=== PATIENT | female | born 1985 | race Two or more races ===

== ENCOUNTER 2022-03-04 09:16 | Emergency (ER) | payer MEDICAID, OTHER ==
[~2022-03-04] VITALS: Ht 170.2 cm; Wt 113.9 kg
[2022-03-04 09:46] LABS: Urine Bacteria MOD /hpf (None Seen); Urine Blood 3+ /uL (Negative); Urine Budding Yeast MODERATE /hpf (None Seen); Urine Specific Gravity 1.019 (1.001-1.035); Urine WBC 9 /hpf (0 - 5)
[2022-03-04] MEDS ORDERED: KETOROLAC TROMETH 30 MG/ML 1ML VIAL IV ONE (10:00)
[2022-03-04] MEDS ORDERED: SODIUM CHLORIDE 0.9% 1,000 ML IV ONE ×2 (10:00)
[2022-03-04 10:08] LABS: Basophils # (auto) 0.1 10 ^3/uL (0-0.2); Eosinophils # (auto) 0.1 10 ^3/uL (0-0.8); Hemoglobin 8.4 g/dL (12.2-16.2); Lymphocytes # (auto) 2.7 10 ^3/uL (0.4-5.4); Monocytes # (auto) 0.6 10 ^3/uL (0-1.3); Nucleated Red Blood Cells % 0.1 %
[2022-03-04 10:10] LABS: Eosinophils % (auto) 1.7 % (0.0-7.0); Lymphocytes % (auto) 31.9 % (10.0-50.0); Mean Corpuscular Hemoglobin 17.2 pg (28.0-32.0); Mean Corpuscular Volume 57.2 fL (80.0-100.0); Neutrophils % (auto) 58.4 % (37.0-80.0); White Blood Cell 8.5 10^3/uL (4.4-10.8)
[2022-03-04 10:29] LABS: Albumin 3.3 g/dL (3.4-5.0); Calcium 8.9 mg/dL (8.5-10.1)
[2022-03-04 10:32] LABS: BUN/Creatinine Ratio 22.7; Bilirubin, Total 0.4 mg/dL (0.2-1.0); Total Protein 7.7 g/dL (6.4-8.2)
[2022-03-04] MEDS ORDERED: NITR-87 PO (16:06)
[2022-03-04 16:19] VITALS: BP 100/50
== END 2022-03-04 16:04 | disposition home or self-care (01) ==
LOC: ER 09:16
DX: N39.0 Urinary tract infection, site not specified (principal); E46 Unspecified protein-calorie malnutrition; Z68.39 Body mass index [BMI] 39.0-39.9, adult
CPT/HCPCS: 36415; 74176; 80053; 81001; 81025; 85025; 96361; 96374; 99285; J1885; J7030

== ENCOUNTER 2023-03-04 11:57 | Emergency (ER) | payer MEDICAID ==
[~2023-03-04] VITALS: Ht 172.7 cm; Wt 110.9 kg
[~2023-03-04 11:57] MED LIST: NITR-87 PO
[2023-03-04 13:05] LABS: Urine Bacteria FEW /hpf (None Seen); Urine Blood Negative /uL (Negative); Urine Mucus FEW (None Seen); Urine Specific Gravity 1.031 (1.001-1.035); Urine WBC 7 /hpf (0 - 5)
[2023-03-04 13:22] LABS: Basophils # (auto) 0 10 ^3/uL (0-0.2); Basophils % (auto) 0.2 % (0.0-2.0); Eosinophils # (auto) 0.1 10 ^3/uL (0-0.8); Eosinophils % (auto) 1.1 % (0.0-7.0); Hemoglobin 8.7 g/dL (12.2-16.2); Lymphocytes # (auto) 1.8 10 ^3/uL (0.4-5.4); Monocytes # (auto) 0.5 10 ^3/uL (0-1.3); Neutrophils # (auto) 7.4 10 ^3/uL (1.6-8.6)
[2023-03-04 13:24] LABS: Lymphocytes % (auto) 18.7 % (10.0-50.0); Mean Corpuscular Hgb Conc. 28.8 g/dL (32.0-36.0); Mean Corpuscular Volume 55.3 fL (80.0-100.0); Nucleated Red Blood Cells % 0.2 %; Red Blood Cells 5.42 10^6/uL (4.0-5.20); White Blood Cell 9.8 10^3/uL (4.4-10.8)
[2023-03-04 13:29] LABS: Red Cell Distribution Width 20.2 % (11.8-14.3)
[2023-03-04 14:01] LABS: Potassium 3.5 mmol/L (3.5-5.1)
[2023-03-04 14:07] LABS: Albumin 3.4 g/dL (3.4-5.0); BUN/Creatinine Ratio 22.5 (10.0-20.0); Bilirubin, Total 0.7 mg/dL (0.2-1.0); Total Protein 8.2 g/dL (6.4-8.2)
[2023-03-04] MEDS ORDERED: CIPR-173 PO (14:28)
[2023-03-04 15:44] VITALS: BP 120/82
== END 2023-03-04 15:46 | disposition home or self-care (01) ==
LOC: ER 11:57
DX: N39.0 Urinary tract infection, site not specified (principal); R51.9 Headache, unspecified; R42 Dizziness and giddiness; Z90.49 Acquired absence of other specified parts of digestive tract; Z88.1 Allergy status to other antibiotic agents
CPT/HCPCS: 36415; 80053; 81001; 85025

== ENCOUNTER 2023-08-03 02:33 | Emergency (ER) | payer MEDICAID ==
[~2023-08-03] VITALS: Ht 170.2 cm; Wt 109.0 kg
[~2023-08-03 02:33] MED LIST changes: +CIPR-173 PO
[2023-08-03 03:37] LABS: Urine Bacteria NONE SEEN /hpf (None Seen); Urine Blood Negative /uL (Negative); Urine Clarity Clear (Clear); Urine Color Yellow (Yellow); Urine Protein, UAD Negative (Negative); Urine Specific Gravity 1.032 (1.001-1.035); Urine Urobilinogen Normal (Negative); Urine WBC 1 /hpf (0 - 5)
[2023-08-03 06:26] VITALS: BP 115/66; PULSE 66; RESP 18; TEMP 97.8; O2SAT 100
[2023-08-03] MEDS ORDERED: KETOROLAC TROMETH 30 MG/ML 1ML VIAL IM ONE (06:45)
[2023-08-03] MEDS ORDERED: METOCLOPRAMIDE HCL 5MG/ml INJ 2ml VIAL IM ONE (06:45)
[2023-08-03 07:11] LABS: Basophils # (auto) 0 10 ^3/uL (0-0.2); Basophils % (auto) 0.5 % (0.0-2.0); Eosinophils # (auto) 0.1 10 ^3/uL (0-0.8); Hemoglobin 8.2 g/dL (12.2-16.2); Lymphocytes # (auto) 2.6 10 ^3/uL (0.4-5.4); Monocytes # (auto) 0.5 10 ^3/uL (0-1.3)
[2023-08-03 07:12] LABS: Eosinophils % (auto) 1.2 % (0.0-7.0); Hematocrit 28.3 % (36.0-46.0); Lymphocytes % (auto) 29.4 % (10.0-50.0); Mean Corpuscular Hemoglobin 16.2 pg (28.0-32.0); Mean Corpuscular Hgb Conc. 28.9 g/dL (32.0-36.0); Monocytes % (auto) 5.5 % (0.0-12.0); Neutrophils # (auto) 5.7 10 ^3/uL (1.6-8.6); Neutrophils % (auto) 63.4 % (37.0-80.0); Red Blood Cells 5.05 10^6/uL (4.0-5.20); Red Cell Distribution Width 19.7 % (11.8-14.3)
[2023-08-03 07:27] LABS: Alanine Aminotransferase 26 U/L (7-40); Albumin 4.2 g/dL (3.2-4.8); Alkaline Phosphatase 124 U/L (46-116); Anion Gap 6 (5-15); Aspartate Aminotransferase < 8 U/L (13-40); BUN/Creatinine Ratio 12.3 (10.0-20.0); Blood Urea Nitrogen 9 mg/dL (9-23); Calcium 9.2 mg/dL (8.7-10.4); Carbon Dioxide 26 mmol/L (20-30); Chloride 103 mmol/L (98-107); Glucose 236 mg/dL (74-106); Potassium 4.1 mmol/L (3.5-5.1); Sodium 135 mmol/L (136-145)
[2023-08-03 07:28] LABS: Bilirubin, Total 0.6 mg/dL (0.2-1.0); Total Protein 7.8 g/dL (5.7-8.2)
[2023-08-03 08:07] LABS: Platelet Estimate Adequate
[2023-08-03 08:08] LABS: Hypochromia Marked
[2023-08-03] MEDS ORDERED: METF500S3 PO (08:55)
[2023-08-03] MEDS ORDERED: FE FCAP OR (08:55)
[2023-08-03] MEDS ORDERED: SUMA100T15 PO (08:55)
== END 2023-08-03 08:57 | disposition home or self-care (01) ==
LOC: ER 02:33
DX: G43.909 Migraine, unspecified, not intractable, without status migrainosus (principal); E11.9 Type 2 diabetes mellitus without complications; D64.9 Anemia, unspecified; Z90.49 Acquired absence of other specified parts of digestive tract; Z32.02 Encounter for pregnancy test, result negative
CPT/HCPCS: 36415; 70450; 80053; 81001; 81025; 83036; 85025; 96372; 99285; J1885; J2765

== ENCOUNTER 2023-11-18 13:15 | Emergency (ER) | payer MEDICAID ==
[~2023-11-18] VITALS: Ht 170.2 cm; Wt 111.3 kg
[~2023-11-18 13:15] MED LIST changes: +FE FCAP OR; +METF500S3 PO; +SUMA100T15 PO
[2023-11-18] MEDS ORDERED: BENZ100C97 PO (16:06)
[2023-11-18] MEDS ORDERED: AUG875T PO (16:06)
[2023-11-18] MEDS ORDERED: IBUP1TAB5 PO (16:06)
[2023-11-18 16:08] VITALS: BP 127/71; PULSE 70; RESP 18; TEMP 97.9; O2SAT 96
== END 2023-11-18 16:09 | disposition home or self-care (01) ==
LOC: ER 13:15
DX: J32.9 Chronic sinusitis, unspecified (principal); Z90.49 Acquired absence of other specified parts of digestive tract

== ENCOUNTER 2023-12-21 22:00 | Emergency (ER) | payer MEDICAID ==
[~2023-12-21] VITALS: Ht 170.2 cm; Wt 107.0 kg
[~2023-12-21 22:00] MED LIST changes: +AUG875T PO; +BENZ100C97 PO; +IBUP1TAB5 PO
[2023-12-21 23:15] VITALS: BP 138/82; PULSE 96; RESP 16; TEMP 98.6; O2SAT 98
[2023-12-22] MEDS: KETOROLAC TROMETH 60MG/2ML VIAL IM ONE (00:25)
[2023-12-22 00:29] LABS: Rapid Strep A Screen-Throat Negative
[2023-12-22] MEDS ORDERED: IBUP1TAB5 PO (00:44)
== END 2023-12-22 01:00 | disposition home or self-care (01) ==
LOC: ER 22:00
DX: R59.0 Localized enlarged lymph nodes (principal); J02.9 Acute pharyngitis, unspecified; Z90.49 Acquired absence of other specified parts of digestive tract
CPT/HCPCS: 36415; 86308; 87070; 87880; 96372; 99283; J1885

== ENCOUNTER 2024-12-11 15:09 | Emergency (ER) | payer MEDICAID, OTHER ==
[~2024-12-11] VITALS: Ht 170.2 cm; Wt 108.2 kg
--- NOTE | 2024-12-11 16:13 | ED.PDOC ---
History of Present Illness HPI Comments 39 y.o female presents to the ED for a chief complaint of body aches associated with a dry cough, fever and chills that presented 1 day ago. Patient denies any SOB, nausea, vomiting, diarrhea. No respiratory illness reported, has not take any medication at home for symptoms. Presents to the ED with Temperature of 100.3 F Chief Complaint: Flu like Time Seen by MD: 16:08 Primary Care Provider: NONE Allergies: Coded Allergies: No Known Drug Allergy (Verified Allergy, Unknown, 03/04/22) Home Meds Active Scripts Ibuprofen Micronized (Ibuprofen) 600 Mg Tab, 600 MG PO TID, #30 TAB Prov:OBINNA BEYER PAC 12/22/23 Benzonatate (Benzonatate) 100 Mg Cap, 100 MG PO TID for 10 Days, #30 CAP 0 Refills Prov:LINO GANDHI SOFTWARE PACKAGER 11/18/23 Ibuprofen Micronized (Ibuprofen) 600 Mg Tab, 600 MG PO TIDWM for 10 Days, #30 TAB 0 Refills Prov:LINO GANDHI SOFTWARE PACKAGER 11/18/23 Amoxicillin & Pot Clavulanate (AUGMENTIN TABLET) 875 Mg Tb, 875 MG PO BID for 7 Days, #14 TAB 0 Refills Prov:LNIO GANDHI SOFTWARE PACKAGER 11/18/23 Sumatriptan Succinate (Sumatriptan Succinate) 100 Mg Tab, 1 TAB PO UD, #9 TAB 1 Refill Prov:CHARLOTTE JENSEN NP 08/03/23 Fe Fumarate-Vitamin C-Vitamin (Hematogen Fa) Cap, 1 CAP OR BID for 30 Days, #60 CAP 1 Refill Prov:CHARLOTTE JENSEN NP 08/03/23 Metformin HCl (Metformin Hydrochloride) 500 Mg/5 Ml [place], 500 MG PO BID for 30 Days, #60 ML 1 Refill Prov:CHARLOTTE JENSEN NP 08/03/23 Ciprofloxacin Hcl (Cipro) 500 Mg Tab, 1 TAB PO BID, #14 TAB Prov:BENJAMÍN BOGGS MD 03/04/23 Nitrofurantoin Monohydrate Mac (Macrobid) 100 Mg Cap, 100 MG PO BID for 7 Days, #14 CAP Prov:SHREYAS PERSAUD MD 03/04/22 Information Source: Patient Mode of Arrival: Ambulatory Severity: Mild Timing: Days (1) Duration: Since onset Past Medical History PAST MEDICAL HISTORY: Denies Surgical History: Cholecystectomy REAL ESTATE PROCESSOR History: No Pertinent REAL ESTATE PROCESSOR History Family History Family History: Reviewed,noncontributory to illness Social History Smoker: Non-Smoker Alcohol: Denies ETOH Use Drugs: Denies Drug Use Lives In: Home Constitutional: reports: chills; denies: diaphoresis, fatigue, fever, malaise, sweats, weakness, others EENTM: denies: blurred vision, double vision, ear bleeding, ear discharge, ear drainage, ear pain, ear ringing, eye pain, eye redness, hearing loss, mouth pain, mouth swelling, nasal discharge, nose bleeding, nose congestion, nose pain , photophobia, tearing, throat pain, throat swelling, voice changes, others Respiratory: reports: cough; denies: hemoptysis, orthopnea, SOB at rest, shortness of breath, SOB with excertion, stridor, wheezing, others Cardiovascular: denies: chest pain, dizzy spells, diaphoresis, Dyspnea on exertion, edema, irregular heart beat, left arm pain, lightheadedness, palpitations, PND, syncope, others Gastrointestinal: denies: abdomen distended, abdominal pain, blood streaked bowels, constipated, diarrhea, dysphagia, difficulty swallowing, hematemesis, melena, nausea, poor appetite, poor fluid intake, rectal bleeding, rectal pain, vomiting, others Genitourinary: denies: abnormal vagina bleeding, burning, dyspareunia, dysuria, flank pain, frequency, hematuria, incontinence, pain, , vagina discharge, urgency, others Neurological: denies: dizziness, fainting, headache, left sided numbness, left sided weakness, numbness, paresthesia, pre-existing deficit, right sided numbness, right sided weakness, seizure, speech problems, tingling, tremors, weakness, others Musculoskeletal: reports: muscle pain; denies: back pain, gout, joint pain, joint swelling, muscle stiffness, neck pain, others Integumetry: denies: bruises, change in color, change in hair/nails, dryness, laceration, lesions, lumps, rash, wounds, others Allergic/Immunocompromised: denies: Difficulty Healing, Frequent Infections, Hives, Itching, others Hematologic/Lymphatic: denies: anemia, blood clots, easy bleeding, easy bruising, swollen glands, others Endocrine: denies: excessive hunger, excessive sweating, excessive thirst, excessive urination, flushing, intolerance to cold, intolerance to heat, unexplained weight gain, unexplained weight loss, others Psychiatric: denies: anxiety, bipolar disorder, depression, hopeless, panic disorder, schizophrenia, sleepless, suicidal, others All Other Systems: Reviewed and Negative Physical Exam General Appearance: No Apparent Distress, Normal HEENT: Normal ENT Inspection, Pharynx Normal, TMs Normal Neck: Full Range of Motion, Non-Tender, Normal, Normal Inspection Respiratory: Chest Non-Tender, Lungs Clear, No Accessory Muscle Use, No Respiratory Distress, Normal Breath Sounds Cardiovascular: No Edema, No JVD, No Murmur, No Gallop, Normal Peripheral Pulses, Regular Rate/Rhythm Breast Exam: Deferred Gastrointestinal: No Organomegaly, Non Tender, No Pulsatile Mass, Normal Bowel Sounds, Soft Genitalia: Deferred Pelvic: Deferred Rectal: Deferred Extremities: No calf tenderness, Normal capillary refill, Normal inspection, Normal range of motion, Non-tender, No pedal edema Musculoskeletal : Apperance: Normal Neurologic: Alert, software engineering supervisor II-XII nml as Tested, No Motor Deficits, Normal Affect, Normal Mood, No Sensory Deficits Cerebellar Function: Normal Reflexes: Normal Skin: Dry, Normal Color, Warm Lymphatic: No Adenopathy Was a procedure done? Was a procedure done?: No Differential Dx Considerations may include: Dehydration, Influenza, URI, Viral syndrome, Bronchitis X-Ray, Labs, Meds, VS Vital Signs Date Time Temp Pulse Resp B/P (MAP) Pulse Ox O2 Delivery O2 Flow Rate FiO2 12/11/24 16:39 100 22 98 Room Air 12/11/24 16:39 100 18 156/99 (118) 95 12/11/24 16:05 100.6 107 19 127/70 (89) 96 Lab Test 12/11/24 14:43 Range/Units Influenza Type A Antigen Positive Negative Influenza Type B Antigen Negative Negative Current Medications Medications (Trade) Dose Ordered Sig/Luis Route Start Time Stop Time Status Last Admin Acetaminophen (Tylenol Tablet) 650 mg ONCE ONCE PO 12/11/24 16:15 12/11/24 16:16 DC 12/11/24 16:39 Time of 1ST Reevaluation: 16:11 Reevaluation 1ST: Unchanged Patient Education/Counseling: Diagnosis, Treatment, Prognosis, Need For Follow Up Family Education/Counseling: No Family Present Additional Information I reviewed the following notes from patient's past medical encounters: 12/21/23 for Lymphadenopathy 11/18/23 for Sinus infection The following tests were ordered, and results were reviewed by me: Acetaminophen and Influenza swab Additional Information was gathered from interviewing the following independent historians: None I reviewed and agreed with the following test results read by other providers:None I discussed treatment and results with medical personnel pt has influenza A. since she is diabetic, i will start her on tamiflu, althoughn results may not be optimal, since sxs have been present for a week Departure 1 Departure Time of Disposition: 17:49 Impression: Primary Impression: Influenza A Disposition: 01 HOME / SELF CARE / HOMELESS Condition: Good e-Prescriptions Oseltamivir Phosphate (Tamiflu) 75 Mg Cap 1 CAP PO BID, #10 CAP Prov: SHAQUILLE HOLLINS MD 12/11/24 Discharged With: Self Critical Care Note Critical Care Time?: No Stability Stability form required: No I personally scribed for SHAQUILLE HOLLINS MD ([email or web address]) on 12/11/24 at 16:13. Electronically submitted by Milady Heller ([facility]). SHAQUILLE HOLLINS MD Dec 11, 2024 16:13
[2024-12-11] MEDS: ACETAMINOPHEN 325 MG TAB PO ONE (16:39)
[2024-12-11 17:33] LABS: Rapid Influenza A Positive (Negative); Rapid Influenza B Negative (Negative)
[2024-12-11] MEDS ORDERED: OSEL75CA5 PO (17:50)
[2024-12-11 18:08] VITALS: BP 148/77; PULSE 96; RESP 18; TEMP 99.6; O2SAT 96
== END 2024-12-11 18:14 | disposition home or self-care (01) ==
LOC: ER 15:09
DX: J10.1 Influenza due to other identified influenza virus with other respiratory manifestations (principal); Z79.899 Other long term (current) drug therapy; Z90.49 Acquired absence of other specified parts of digestive tract
CPT/HCPCS: 87804

== ENCOUNTER 2025-06-28 07:52 | Emergency (ER) | payer OTHER ==
[~2025-06-28] VITALS: Ht 170.2 cm; Wt 107.7 kg
[~2025-06-28 07:52] MED LIST changes: +OSEL75CA5 PO
--- NOTE | 2025-06-28 08:06 | ED.PDOC ---
GI ASSESSMENT HPI Comments 40 y/o F, presents to the ED for CC of diarrhea. Patient states, she has been having diarrhea with associated nausea sudden onset, last night (06/27/25). Patient reports, new onset symptoms of upper midback pain starting this morning (06/28/25). Patient denies nausea, vomiting, abdominal pain, fever, or chills. No other symptoms or modifying factors are present at this time. Chief Complaint: Diarrhea Time Seen by MD: 08:00 Primary Care Provider: NONE Reviewed Notes: Nurses Notes, Medications, Allergies Allergies: Coded Allergies: No Known Drug Allergy (Verified Allergy, Unknown, 03/04/22) Home Meds Active Scripts Pantoprazole Sodium Sesquihydr (Protonix) 40 Mg Tab, 40 MG PO DAILY for 5 Days, #5 TAB Prov:SHREYAS PERSAUD MD 06/28/25 Oseltamivir Phosphate (Tamiflu) 75 Mg Cap, 1 CAP PO BID, #10 CAP Prov:SHAQUILLE HOLLINS MD 12/11/24 Ibuprofen Micronized (Ibuprofen) 600 Mg Tab, 600 MG PO TID, #30 TAB Prov:OBINNA BEYER 12/22/23 Benzonatate (Benzonatate) 100 Mg Cap, 100 MG PO TID for 10 Days, #30 CAP 0 Refills Prov:LINO GANDHI COMMERCIAL SUBCONTRACTOR 11/18/23 Ibuprofen Micronized (Ibuprofen) 600 Mg Tab, 600 MG PO TIDWM for 10 Days, #30 TAB 0 Refills Prov:LINO GANDHI COMMERCIAL SUBCONTRACTOR 11/18/23 Amoxicillin & Pot Clavulanate (AUGMENTIN TABLET) 875 Mg Tb, 875 MG PO BID for 7 Days, #14 TAB 0 Refills Prov:LINO GANDHI COMMERCIAL SUBCONTRACTOR 11/18/23 Sumatriptan Succinate (Sumatriptan Succinate) 100 Mg Tab, 1 TAB PO UD, #9 TAB 1 Refill Prov:CHARLOTTE JENSEN NP 08/03/23 Fe Fumarate-Vitamin C-Vitamin (Hematogen Fa) Cap, 1 CAP OR BID for 30 Days, #60 CAP 1 Refill Prov:CHARLOTTE JENSEN NP 08/03/23 Metformin HCl (Metformin Hydrochloride) 500 Mg/5 Ml [place], 500 MG PO BID for 30 Days, #60 ML 1 Refill Prov:CHARLOTTE JENSEN NP 08/03/23 Ciprofloxacin Hcl (Cipro) 500 Mg Tab, 1 TAB PO BID, #14 TAB Prov:BENJAMÍN BOGGS MD 03/04/23 Nitrofurantoin Monohydrate Mac (Macrobid) 100 Mg Cap, 100 MG PO BID for 7 Days, #14 CAP Prov:SHREYAS PERSAUD MD 03/04/22 Information Source: Patient Mode of Arrival: Ambulatory Timing: Hours Duration: Since onset Prehospital treatment: None Quality: None Vomitus: None Stool: Watery Severity: Moderate Recent: None Recent Hx of: None Pain Location: None Modifying Factors: Nothing Associated sign and symptoms: Nausea, Diarrhea Past Medical History PAST MEDICAL HISTORY: Denies Surgical History: Cholecystectomy FLEET OPERATIONS MANAGER History: No Pertinent FLEET OPERATIONS MANAGER History Family History Family History: Reviewed,noncontributory to illness Social History Smoker: Non-Smoker Alcohol: Denies ETOH Use Drugs: Denies Drug Use Lives In: Home Constitutional: denies: chills, diaphoresis, fatigue, fever, malaise, sweats, weakness, others EENTM: denies: blurred vision, double vision, ear bleeding, ear discharge, ear drainage, ear pain, ear ringing, eye pain, eye redness, hearing loss, mouth pain, mouth swelling, nasal discharge, nose bleeding, nose congestion, nose pain, photophobia, tearing, throat pain, throat swelling, voice changes, others Respiratory: denies: cough, hemoptysis, orthopnea, SOB at rest, shortness of breath, SOB with excertion, stridor, wheezing, others Cardiovascular: denies: chest pain, dizzy spells, diaphoresis, Dyspnea on exertion, edema, irregular heart beat, left arm pain, lightheadedness, palpitations, PND, syncope, others Gastrointestinal: reports: diarrhea, nausea; denies: abdomen distended, abdominal pain, blood streaked bowels, constipated, dysphagia, difficulty swallowing, hematemesis, melena, poor appetite, poor fluid intake, rectal bleeding, rectal pain, vomiting, others Genitourinary: denies: abnormal vagina bleeding, burning, dyspareunia, dysuria, flank pain, frequency, hematuria, incontinence, pain, , vagina discharge, urgency, others Neurological: denies: dizziness, fainting, headache, left sided numbness, left sided weakness, numbness, paresthesia, pre-existing deficit, right sided numbness, right sided weakness, seizure, speech problems, tingling, tremors, weakness, others Musculoskeletal: reports: back pain; denies: gout, joint pain, joint swelling, muscle pain, muscle stiffness, neck pain, others Integumetry: denies: bruises, change in color, change in hair/nails, dryness, laceration, lesions, lumps, rash, wounds, others Allergic/Immunocompromised: denies: Difficulty Healing, Frequent Infections, Hives, Itching, others Hematologic/Lymphatic: denies: anemia, blood clots, easy bleeding, easy bruising, swollen glands, others Endocrine: denies: excessive hunger, excessive sweating, excessive thirst, excessive urination, flushing, intolerance to cold, intolerance to heat, u nexplained weight gain, unexplained weight loss, others Psychiatric: denies: anxiety, bipolar disorder, depression, hopeless, panic disorder, schizophrenia, sleepless, suicidal, others All Other Systems: Reviewed and Negative Physical Exam General Appearance: Moderate Distress HEENT: Normal ENT Inspection, Pharynx Normal, TMs Normal Neck: Full Range of Motion, Non-Tender, Normal, Normal Inspection Respiratory: Chest Non-Tender, Lungs Clear, No Accessory Muscle Use, No Respiratory Distress, Normal Breath Sounds Cardiovascular: No Edema, No JVD, No Murmur, No Gallop, Normal Peripheral Pulses, Regular Rate/Rhythm Breast Exam: Deferred Gastrointestinal: No Organomegaly, Non Tender, No Pulsatile Mass, Normal Bowel Sounds, Soft Genitalia: Deferred Pelvic: Deferred Rectal: Deferred Extremities: No calf tenderness, Normal capillary refill, Normal inspection, Normal range of motion, Non-tender, No pedal edema Musculoskeletal : Apperance: Normal Neurologic: Alert, hand chain maker II-XII nml as Tested, No Motor Deficits, Normal Affect, Normal Mood, No Sensory Deficits Cerebellar Function: Normal Reflexes: Normal Skin: Dry, Normal Color, Warm Peripheral Pulses: 3+ Radial (R), 3+ Radial (L) Lymphatic: No Adenopathy Was a procedure done? Was a procedure done?: No GI differential Dx Differential Diagnosis: Constipation, Diverticular disease, Esophagitis, Gastritis/PUD, Gastroenteritis, Inflammatory BD X-Ray, Labs, Meds, VS Vital Signs Date Time Temp Pulse Resp B/P (MAP) Pulse Ox O2 Delivery O2 Flow Rate FiO2 8/19/25 10:03 98.2 71 16 117/70 (86) 97 98.2 06/28/25 07:53 98.5 83 18 123/73 95 98.5 Lab Test 06/28/25 08:13 06/28/25 08:06 Range/Units White Blood Count 7.0 4.4-10.8 10^3/uL Red Blood Count 4.92 4.0-5.20 10^6/uL Hemoglobin 13.7 12.2-16.2 g/dL Hematocrit 40.5 36.0-46.0 % Mean Corpuscular Volume 82.3 80.0-100.0 fL Mean Corpuscular Hemoglobin 27.8 L 28.0-32.0 pg Mean Corpuscular Hemoglobin Concent 33.8 32.0-36.0 g/dL Red Cell Distribution Width 15.1 H 11.8-14.3 % Platelet Count 265 140-450 10^3/uL Mean Platelet Volume 6.9 6.9-10.8 fL Neutrophils (%) (Auto) 76.7 37.0-80.0 % Lymphocytes (%) (Auto) 15.5 10.0-50.0 % Monocytes (%) (Auto) 7.1 0.0-12.0 % Eosinophils (%) (Auto) 0.5 0.0-7.0 % Basophils (%) (Auto) 0.2 0.0-2.0 % Neutrophils # (Auto) 5.4 1.6-8.6 10 ^3/uL Lymphocytes # (Auto) 1.1 0.4-5.4 10 ^3/uL Monocytes # (Auto) 0.5 0-1.3 10 ^3/uL Eosinophils # (Auto) 0 0-0.8 10 ^3/uL Basophils # (Auto) 0 0-0.2 10 ^3/uL Nucleated Red Blood Cells 0.1 % Sodium Level 136 136-145 mmol/L Potassium Level 3.9 3.5-5.1 mmol/L Chloride Level 105 98-107 mmol/L Carbon Dioxide Level 21 20-31 mmol/L Anion Gap 10 5-15 Blood Urea Nitrogen 7 L 9-23 mg/dL Creatinine 0.68 0.550-1.02 mg/dL Glomerular Filtration Rate Calc 113 >90 mL/min BUN/Creatinine Ratio 10.3 10.0-20.0 Serum Glucose 179 H 74-106 mg/dL Calcium Level 9.0 8.7-10.4 mg/dL Urine Color Yellow Yellow Urine Clarity Turbid H Clear Urine pH 5.5 5.0-9.0 Urine Specific [place] 1.027 1.001-1.035 Urine Protein Negative Negative Urine Ketones Negative Negative Urine Blood Negative Negative /uL Urine Nitrite Negative Negative Urine Bilirubin Negative Negative Urine Urobilinogen Normal Negative mg/dL Urine Leukocyte Esterase Negative Negative /uL Urine RBC 1 0 - 4 /hpf Urine Microscopic WBC 2 0-5 /HPF Urine Squamous Epithelial Cells Few <5 /hpf Urine Bacteria Few H None Seen /hpf Urine Mucus Few None Seen Urine Glucose Normal Normal mg/dL Patient alert. Complaining of abdominal discomfort. Abdomen is soft nontender. Vitals stable. Answering questions. Ambulating. Physical examination pristine. Blood sugar elevated. Establish intravenous access. Was given fluids. WBC within normal limits. Hemoglobin within normal limits. Possible gastritis. Was given prescription of Protonix. Explained to the patient. Was told to follow up with her primary care physician. Was told to come back if there is any problem. Time of 1ST Reevaluation: 08:30 Reevaluation 1ST: Improved Patient Education/Counseling: Diagnosis, Treatment Family Education/Counseling: No Family Present SEPSIS Sepsis Screen Date sepsis recognized/suspect: Jun 28, 2025 Time Sepsis recognized/suspect: 075 Recent Procedure: No On Antibiotic Therapy: No Respiratory Rate >20: No Heart Rate >90: No Temp<36 C (96.8 F) or >38.3 C: No SBP <90 or MAP <65 mmHG: No New Acute Mental Status Change: No Is the patient on CPAP, BIPAP,: No Vital Signs Date Time Temp Pulse Resp B/P (MAP) Pulse Ox O2 Delivery O2 Flow Rate FiO2 06/28/25 10:03 98.2 71 16 117/70 (86) 97 98.2 06/28/25 07:53 98.5 83 18 123/73 95 98.5 Laboratory Tests Test 06/28/25 08:13 White Blood Count 7.0 10^3/uL (4.4-10.8) Departure 1 Departure Time of Disposition: 09:00 Impression: Primary Impression: Uncontrolled diabetes mellitus Qualified Codes: E13.65 - Other specified diabetes mellitus with hyperglycemia Additional Impression: Gastritis Qualified Codes: K29.00 - Acute gastritis without bleeding Disposition: HOME / SELF CARE / HOMELESS Condition: Good e-Prescriptions Pantoprazole Sodium Sesquihydr (Protonix) 40 Mg Tab 40 MG PO DAILY for 5 Days, #5 TAB Prov: SHREYAS PERSAUD MD 06/28/25 Discharged With: Self Critical Care Note Critical Care Time?: No Stability Stability form required: No Heart Score Heart Score: Heart Score Response (Comments) Value History N/A 0 EKG N/A 0 Age N/A 0 Risk Factors N/A 0 Troponin N/A 0 Total 0 I personally scribed for SHREYAS PERSAUD MD ([email or web address]) on 06/28/25 at 08:06. Electronically submitted by Stephany Alexis ([email or web address]). SHREYAS PERSAUD MD Jun 28, 2025 08:06
[2025-06-28 08:31] LABS: Hematocrit 40.5 % (36.0-46.0); Hemoglobin 13.7 g/dL (12.2-16.2); Mean Corpuscular Hemoglobin 27.8 pg (28.0-32.0); Mean Corpuscular Volume 82.3 fL (80.0-100.0); Nucleated Red Blood Cells % 0.1 %
[2025-06-28 08:38] LABS: Chloride 105 mmol/L (98-107); Potassium 3.9 mmol/L (3.5-5.1)
[2025-06-28 08:39] LABS: Anion Gap 10 (5-15); Carbon Dioxide 21 mmol/L (20-31)
[2025-06-28 08:40] LABS: Calcium 9.0 mg/dL (8.7-10.4); Sodium 136 mmol/L (136-145)
[2025-06-28 08:44] LABS: BUN/Creatinine Ratio 10.3 (10.0-20.0)
[2025-06-28 08:49] LABS: Blood Urea Nitrogen 7 mg/dL (9-23); Glucose 179 mg/dL (74-106)
[2025-06-28] MEDS ORDERED: PANT40TA2 PO (09:01)
[2025-06-28 10:03] VITALS: BP 117/70; PULSE 71; RESP 16; TEMP 98.2; O2SAT 97
[2025-06-28 10:10] LABS: Urine Protein, UAD Negative (Negative)
== END 2025-06-28 11:09 | disposition home or self-care (01) ==
LOC: ER 07:52
DX: E11.65 Type 2 diabetes mellitus with hyperglycemia (principal); K29.00 Acute gastritis without bleeding; Z90.49 Acquired absence of other specified parts of digestive tract; Z79.899 Other long term (current) drug therapy
CPT/HCPCS: 36415; 80048; 81001; 85025